=== PATIENT | female | born 1980 | race Caucasian/White ===

== ENCOUNTER → 2016-11-25 | Outpatient (CLI) | payer BC, OTHER ==
[~2016-11-25] MED LIST: CHOL1TAB42 PO; CYAN100048 UT; MAGN1CAP2 PO; MISCCAP80 PO; OMEG10007 PO; SPR25 PO
== END | disposition home or self-care (01) ==
LOC: C.RDSM 16:50
PROVIDERS: ATTEND Physical Medicine & Rehabilitation Sports Medicine
DX: M25.562 Pain in left knee (principal)

== ENCOUNTER → 2017-05-10 | Outpatient (CLI) | payer BC | END | disposition home or self-care (01) | LOC: C.PAPS 18:08 | PROVIDERS: ATTEND Obstetrics & Gynecology | DX: Z01.419 Encounter for gynecological examination (general) (routine) without abnormal findings (principal) ==

== ENCOUNTER → 2017-08-24 | Outpatient (CLI) | payer BC | END | disposition home or self-care (01) | LOC: C.LABSPEC 17:32 | PROVIDERS: ATTEND Obstetrics & Gynecology | DX: R10.2 Pelvic and perineal pain (principal) ==

== ENCOUNTER → 2017-09-24 | Outpatient (CLI) | payer BC ==
--- NOTE | 2017-09-24 08:18 | DIAGNOSTIC IMAGING REPORT ---
LEFT LOWER QUADRANT/INGUINAL ULTRASOUND CLINICAL HISTORY: R10.32 COMPARISON STUDY: February 2015 FINDINGS: No masses fluid collections or hernias were visualized. IMPRESSION: No ultrasonographic abnormality identified Electronically signed by: Vasyl Sommers M.D. 09/24/2017 8:16 AM Dictated Date/Time: 09/24/2017 8:15 AM
== END | disposition home or self-care (01) ==
LOC: C.ULTR 07:44
PROVIDERS: ATTEND Family Medicine
DX: R10.32 Left lower quadrant pain (principal)

== ENCOUNTER → 2017-09-29 | Outpatient (CLI) | payer BC ==
[~2017-09-29] MED LIST changes: +OPTIRAY 320 IV PRN
--- NOTE | 2017-09-29 08:12 | DIAGNOSTIC IMAGING REPORT ---
ABD/PELVIS IV CONTRAST ONLY CT DOSE: 864.12 mGycm HISTORY: Pain LLQ ABDOMINAL PAIN * IV ONLY * TECHNIQUE: Multiaxial CT images of the abdomen and pelvis were performed following the use of intravenous contrast. A dose lowering technique was utilized adhering to the principles of ALARA. COMPARISON STUDY: 02/26/2015 FINDINGS: Lung bases are clear. Mild fatty infiltration of the liver. No gallbladder distention. Kidneys enhance uniformly. Spleen is unremarkable. The bowel pattern within the abdomen and pelvis is nonobstructive. There appears to been a prior appendectomy. The uterus is anteflexed. There is an intrauterine device within the central uterine canal. The bladder is midline. There is no significant abdominal pelvic or inguinal adenopathy. IMPRESSION: Fatty infiltration of liver. Otherwise negative study. No change from the prior exam. The above report was generated using voice recognition software. It may contain grammatical, syntax or spelling errors. Electronically signed by: Johnny Kenney M.D. 09/29/2017 8:11 AM Dictated Date/Time: 09/29/2017 8:02 AM
== END | disposition home or self-care (01) ==
LOC: C.CTS 07:35
PROVIDERS: ATTEND Family Medicine
DX: R10.32 Left lower quadrant pain (principal); K76.0 Fatty (change of) liver, not elsewhere classified